=== PATIENT | female | born 1995 | race Caucasian/White ===

== ENCOUNTER 2019-01-06 09:46 | Emergency (ER) | payer OTHER ==
[2019-01-06 09:58] VITALS: BMI 26.1
[2019-01-06 09:59] VITALS: BP 133/85; PULSE 92; RESP 18; TEMP 98.2; O2SAT 99
--- NOTE | 2019-01-06 12:03 | C.PDOC ---
History Of Present Illness 23-year-old female presents to the ED for evaluation, stating the right side of her face feels "strange" and she has been having trouble closing her eyes since this morning. Patient also reports slight difficulty with eating/drinking anything. Patient denies experiencing similar symptoms in the past. She denies fever, chills, vision change, neck stiffness, extremity numbness/weakness. Time Seen by Provider: 01/06/19 10:09 Chief Complaint (Nursing): Weakness/Neurological Deficit History Per: Patient History/Exam Limitations: no limitations Onset/Duration Of Symptoms: Hrs Current Symptoms Are (Timing): Still Present Associated Symptoms Preceding Syncopal Episode: No Predromal Symptoms (Sudden Onset) Past Medical History Reviewed: Historical Data, Nursing Documentation, Vital Signs Vital Signs: Last Vital Signs Temp 98.2 F 01/06/19 09:58 Pulse 92 H 01/06/19 09:58 Resp 18 01/06/19 09:58 BP 133/85 01/06/19 09:58 Pulse Ox 99 01/06/19 09:58 - Medical History PMH: No Chronic Diseases Surgical History: No Surg Hx Family History: States: Unknown Family Hx - Social History Hx Alcohol Use: No Hx Substance Use: No - Immunization History Hx Tetanus Toxoid Vaccination: No Hx Influenza Vaccination: No Hx Pneumococcal Vaccination: No Review Of Systems Constitutional: Negative for: Fever, Chills Eyes: Negative for: Vision Change Musculoskeletal: Negative for: Other (neck stiffness ) Neurological: Positive for: Other (right-sided facial weakness, trouble closing eyes) Physical Exam - Physical Exam Appears: Non-toxic, No Acute Distress Skin: Normal Color, Warm, Dry Head: Atraumatic, Normacephalic Eye(s): bilateral: Normal Inspection Oral Mucosa: Moist Neck: Supple Chest: Symmetrical, No Deformity, No Tenderness Cardiovascular: Rhythm Regular, No Murmur Respiratory: Normal Breath Sounds, No Rales, No Rhonchi, No Wheezing Extremity: Normal ROM, Capillary Refill (less than 2 seconds ) Neurological/Psych: Oriented x3, Normal Speech, Normal Cognition, Other (decreased forehead wrinking on right side, right-sided facial droop ) ED Course And Treatment O2 Sat by Pulse Oximetry: 99 (on RA ) Pulse Ox Interpretation: Normal Medical Decision Making Medical Decision Making: Progress: Patient was advised to tape her right eye shut at night. On reassessment, patient is resting comfortably, showing no signs of distress and is stable for discharge. Patient is advised to follow-up with her PMD within 3-4 days for further evaluation. Disposition - Disposition Referrals: Jen Sanchez, [Non-Staff] - Disposition: HOME/ ROUTINE Disposition Time: 10:30 Condition: GOOD Additional Instructions: MARY CHAUDHARI, thank you for letting us take care of you today. The emergency m edical care you received today was directed at your acute symptoms. If you were prescribed any medication, please fill it and take as directed. It may take several days for your symptoms to resolve. Return to the Emergency Department if your symptoms worsen, do not improve, or if you have any other problems. Please contact your doctor or call one of the physicians/clinics you have been referred to that are listed on the Patient Visit Information form that is included in your discharge packet. Bring any paperwork you were given at discharge with you along with any medications you are taking to your follow up visit. Our treatment cannot replace ongoing medical care by a primary care provider outside of the emergency department. Thank you for allowing the [facility] team to be part of your care today. Follow up with your primary care doctor in 3-4 days for re-evaluation and further management. Prescriptions: Acyclovir [Zovirax] 400 mg PO 5XD #35 tablet predniSONE [predniSONE Tab] 60 mg PO DAILY 7 Days tab Instructions: Galvan's Palsy (DC) Forms: [employer] (French) - Clinical Impression Clinical Impression: Galvan's palsy - Scribe Statement The provider has reviewed the documentation as recorded by the Scribe (Babs Castro) Provider Attestation: All medical record entries made by the Scribe were at my direction and personally dictated by me. I have reviewed the chart and agree that the record accurately reflects my personal performance of the history, physical exam, medical decision making, and the department course for this patient. I have also personally directed, reviewed, and agree with the discharge instructions and disposition.
== END 2019-01-06 10:55 | disposition home or self-care (01) ==
LOC: C.ER 09:46
DX: G51.0 Bell's palsy (principal)